=== PATIENT | female | born 1960 | race Caucasian/White ===

== ENCOUNTER 2019-12-17 13:23 | Outpatient (RCR) | payer OTHER ==
[~2019-12-17 13:23] MED LIST: GUAIFEN AC 10120 ML PO; LEVAQUIN 5500 MG/TAB PO; NO HOME MEDICATIONS; PERCOCET 5/321 UDTAB PO; PHENERGAN W/CO120 ML PO; SUDAFED60 MG PO; ZOFRAN 4MG T4 MG/TAB PO
== END 2020-01-03 | disposition home or self-care (01) ==
LOC: WSOH
DX: S80.01XD Contusion of right knee, subsequent encounter (principal); M70.41 Prepatellar bursitis, right knee; Y99.0 Civilian activity done for income or pay; R59.0 Localized enlarged lymph nodes; Z98.51 Tubal ligation status